=== PATIENT | female | born 1970 | race African-American/Black ===

== ENCOUNTER 2021-09-15 21:05 | Observation (INO) | payer BC ==
[~2021-09-15] VITALS: Ht 170.2 cm; Wt 78.4 kg
[2021-09-15 21:38] LABS: BASO # 0.1 x10^3/uL (0.0-0.2); BASO % 1 % (0-3); EOS % 0 % (0-3); HEMATOCRIT 35.2 % (36.0-47.0); HEMOGLOBIN 11.3 g/dL (12.0-15.5); LYMPH # 3.7 x10^3/uL (1.0-4.8); LYMPH % 34 % (24-48); MEAN CORPUSCULAR HEMOGLOBIN 28 pg (25-35); MEAN CORPUSCULAR HGB CONC 32 g/dL (31-37); MEAN CORPUSCULAR VOLUME 86 fL (79-100); MONO # 0.7 x10^3/uL (0.0-1.1); MONO % 7 % (0-9); NEUT # 6.4 x10^3/uL (1.8-7.7); NEUT % 58 % (31-73); PLATELET COUNT 297 x10^3/uL (140-400)
[2021-09-15 21:43] LABS: PREG TEST PT QUAL NEGATIVE (NEG)
[2021-09-15 21:49] LABS: ALBUMIN 3.5 g/dL (3.4-5.0); CALCIUM 8.7 mg/dL (8.5-10.1); CREATININE 0.8 mg/dL (0.6-1.0); DIRECT BILIRUBIN 0.2 mg/dL (0.0-0.2); GFR 92.2; MAGNESIUM 1.8 mg/dL (1.8-2.4); TOTAL BILIRUBIN 0.8 mg/dL (0.2-1.0); TOTAL PROTEIN 7.9 g/dL (6.4-8.2)
[2021-09-15 21:50] LABS: POTASSIUM 2.7 mmol/L (3.5-5.1)
--- NOTE | 2021-09-15 21:51 | EKG ---
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
[2021-09-15] MEDS: POTASSIUM CHLORIDE 10MEQ 100 ML IV SCH ×2 (22:26→23:30)
[2021-09-15] MEDS ORDERED: POTASSIUM CHLORIDE 20 MEQ TABLET.ER. PO ONE (22:30)
[2021-09-15] MEDS ORDERED: IV NORMAL SALINE 1000ML BAG 1,000 ML IV ONE (22:30)
[2021-09-15] MEDS ORDERED: CONTRAST GIVEN. MC PRN (23:00)
[2021-09-15] MEDS ORDERED: hydrALAZINE 20 MG/ML VIAL. IVP ONE (23:00)
--- NOTE | 2021-09-15 23:20 | RAD ---
CT angiography chest, abdomen and pelvis without and with contrast PQRS statement: CT scans at this facility use dose reduction including either automated exposure cont rol, iterative reconstructions, and /or weight based radiation dosing via mA and kV modification when appropriate to reduce radiation dose to as low as reasonably achievable. HISTORY: Chest pain. Dissection. Contrast: Pre and postcontrast CT imaging with 100 mL Omnipaque 300 intravenous contrast with 3-D MIP and volume reconstructed images of the arteries acquired. Chest findings: No hyperdense mural hematoma of the aorta on noncontrast imaging. Ascending aorta kalia meter 3.5 cm. No thoracic aortic aneurysm or dissection. Heart size is normal. Pulmonary vessels and soft tissues are normal. No adenopathy in the chest. Cervical disc osteophytes with degenerative spin al canal stenoses at C6-C7 and C7-T1. Trachea and bronchi are unremarkable. Calcified granulomas in t he chest. No pulmonary opacities or pleural effusions. Abdomen findings: No hyperdense intramural hematoma of the aortoiliac arteries on noncontrast imaging . Calcified plaque of the abdominal aorta. No aneurysm, dissection, significant stenosis or occlusion of the aorta or abdominal arteries or iliac artery. Liver, kidneys, adrenals, gallbladder, pancreas and spleen are normal. The pancreas is normal. No obstruction or inflammation GI tract. No abdominal fluid or adenopathy. 1 cm fatty umbilical abdominal wall hernia. Bones unremarkable. Pelvis findings: No iliac artery and carotid dissection, stenosis or occlusion. There is moderate kathy cified plaque of the iliac arteries. Globular enlarged uterus with several ill-defined masses descend ing the upper pelvis. Ovaries not well visualized. The compressed by these uterine masses although an d adjacent adnexal mass cannot be excluded. Bladder, rectum and bones are unremarkable. IMPRESSION: 1. No acute process. No aneurysm or dissection of the thoracic aorta, abdominal aorta and iliac arter ies. 2. Enlarged globular uterus with several masses. These likely represent several large leiomyomas. Giv en the size of the uterus, uterine malignancy is not excluded. Electronically signed by: Ki Tavares MD (09/15/2021 11:18 PM) [facility]
[2021-09-15] MEDS ORDERED: IOHEXOL 350 MG/ML 100 ML VIAL. IV ONE (23:30)
[2021-09-15 23:35] LABS: BILIRUBIN,URINE NEGATIVE (NEG); CLARITY,URINE CLEAR; COLOR,URINE YELLOW
[2021-09-15 23:36] LABS: NITRITE,URINE NEGATIVE (NEG); PROTEIN,URINE NEGATIVE (NEG-TRACE); UROBILINOGEN,URINE 0.2 mg/dL (0.2 mg/dL)
[2021-09-15 23:37] LABS: AMPHETAMINE/METHAMPHETAMINE NEG (NEG); BACTERIA,URINE FEW /HPF (0-FEW); BARBITURATES NEG (NEG); BENZODIAZEPINES NEG (NEG); CANNABINOIDS POS (NEG); COCAINE NEG (NEG); METHADONE NEG (NEG); OPIATES NEG (NEG); PHENCYCLIDINE NEG (NEG)
--- NOTE | 2021-09-15 23:52 | PHYS DOC ---
Past Medical History Past Medical History: No Pertinent History Past Surgical History: Tubal ligation Smoking Status: Never Smoker Alcohol Use: None Drug Use: None General Adult EDM: Chief Complaint: CHEST PAIN HPI: HPI: 51-year-old female past medical history of hypertension, noncompliant with her lisinopril for the past 2 years, presents the ED with her , (patient consents to his/her/their knowledge and involvement in pts' medical care), complaints of " pulling and aching," left-sided chest pain and left upper back pain that started around 4 PM while she was sitting down at work doing paperwork. Patient states the pain worsened when she turned her head to the right and lifted her left upper arm. Symptoms lasted for approximately 4 hours. No prior history of similar symptoms. Denies any excessive caffeine use, cocaine or methamphetamines. Is a tobacco smoker. Has been vaccinated for COVID. No prior cardiac history. Father with history of peripheral arterial disease and stent placement. Patient denies any current or active chest discomfort. Does report increased stress and anxiety at work. 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 No personal or family history of AAA, AAD, CTD ([place] or marfans), cardiac arrhythmias (need for AICD), CAD, sudden or unexplainable (under 50 years of age or with exertion), or clotting disorders. Review of Systems: Review of Systems: Constitutional: Denies fever or chills. [] Eyes: Denies change in visual acuity. [] HENT: Denies nasal congestion or sore throat. [] Respiratory: Denies cough or shortness of breath. [] Cardiovascular: Denies palpitations or edema. [] GI: Denies abdominal pain, nausea, vomiting, bloody stools or diarrhea. [] : Denies dysuria or hematuria Musculoskeletal: Denies back pain or joint pain. [] Integument: Denies rash or diaphoresis Neurologic: Denies headache, focal weakness or sensory changes. [] Endocrine: Denies polyuria or polydipsia. [] Lymphatic: Denies swollen glands. [] Psychiatric: Denies depression or anxiety. [] Heart Score: C/O Chest Pain: Yes HEART Score for Chest Pain: HEART Score for Chest Pain Response (Comments) Value History Moderately Suspicious 1 ECG Nonspecific Repolarizatio 1 Age >45 - < 65 1 Risk Factors 1 or 2 Risk Factors 1 Troponin < Normal Limit 0 Total 4 Risk Factors: Risk Factors: DM, Current or recent (<one month) smoker, HTN, HLP, family history of CAD, obesity. Risk Scores: Score 0 - 3: 2.5% MACE over next 6 weeks - Discharge Home Score 4 - 6: 20.3% MACE over next 6 weeks - Admit for Clinical Observation Score 7 - 10: 72.7% MACE over next 6 weeks - Early Invasive Strategies Current Medications: Current Medications Medications (Trade) Dose Ordered Sig/Georgina Start Time Stop Time Status Last Admin Dose Admin Hydralazine HCl (Apresoline Inj) 20 mg 1X ONCE 09/15/21 23:00 09/15/21 23:01 DC Info (CONTRAST GIVEN -- Rx MONITORING) 1 each PRN DAILY PRN 09/15/21 23:00 09/17/21 22:59 Iohexol (Omnipaque 350 Mg/ml) 100 ml 1X ONCE 09/15/21 23:30 09/15/21 23:31 DC 09/15/21 23:00 100 ML Potassium Chloride/Water 100 ml @ 100 mls/hr Q1H 09/15/21 22:30 09/16/21 00:29 09/15/21 22:26 100 MLS/HR Potassium Chloride (Klor-Con) 40 meq 1X ONCE 09/15/21 22:30 09/15/21 22:31 DC 09/15/21 22:37 40 MEQ Sodium Chloride 1,000 ml @ 1,000 mls/hr 1X ONCE 09/15/21 22:30 09/15/21 23:29 DC 09/15/21 22:29 1,000 MLS/HR Allergies: Allergies: Allergies Coded Allergies Type Severity Reaction Last Updated Verified No Known Drug Allergies 09/15/21 No Physical Exam: PE: Constitutional: Well developed, well nourished, no acute distress, non-toxic appearance, hypertensive HENT: Normocephalic, atraumatic, Eyes: EOMI, conjunctiva normal, no discharge. Neck: Normal range of motion, supple, Cardiovascular: S1/2 present, regular rhythm Lungs & Thorax: Speaking in full sentences, bilateral equal chest rise, no tachypnea or increased work of breathing Abdomen: soft, no tenderness, Skin: Warm, dry, no erythema, no rash. [] Back: No midline tenderness, no CVA tenderness. [] Extremities: No tenderness, no cyanosis, no lower extremity edema Neurologic: Alert and oriented X 3, normal motor function, normal sensory function, no focal deficits noted. [] Psychologic: Affect normal, judgement normal, mood normal-, Current Patient Data: Labs: Laboratory Tests Test 09/15/21 20:19 09/15/21 23:15 White Blood Count 11.0 x10^3/uL (4.0-11.0) Red Blood Count 4.10 x10^6/uL (3.50-5.40) Hemoglobin 11.3 g/dL (12.0-15.5) L Hematocrit 35.2 % (36.0-47.0) L Mean Corpuscular Volume 86 fL (79-100) Mean Corpuscular Hemoglobin 28 pg (25-35) Mean Corpuscular Hemoglobin Concent 32 g/dL (31-37) Red Cell Distribution Width 16.0 % (11.5-14.5) H Platelet Count 297 x10^3/uL (140-400) Neutrophils (%) (Auto) 58 % (31-73) Lymphocytes (%) (Auto) 34 % (24-48) Monocytes (%) (Auto) 7 % (0-9) Eosinophils (%) (Auto) 0 % (0-3) Basophils (%) (Auto) 1 % (0-3) Neutrophils # (Auto) 6.4 x10^3/uL (1.8-7.7) Lymphocytes # (Auto) 3.7 x10^3/uL (1.0-4.8) Monocytes # (Auto) 0.7 x10^3/uL (0.0-1.1) Eosinophils # (Auto) 0.0 x10^3/uL (0.0-0.7) Basophils # (Auto) 0.1 x10^3/uL (0.0-0.2) D-Dimer (Serene) 1.39 ug/mlFEU (0.00-0.50) H Sodium Level 140 mmol/L (136-145) Potassium Level 2.7 mmol/L (3.5-5.1) *L Chloride Level 102 mmol/L (98-107) Carbon Dioxide Level 23 mmol/L (21-32) Anion Gap 15 (6-14) H Blood Urea Nitrogen 7 mg/dL (7-20) Creatinine 0.8 mg/dL (0.6-1.0) Estimated GFR (Cockcroft-Gault) 92.2 Glucose Level 105 mg/dL (70-99) H Calcium Level 8.7 mg/dL (8.5-10.1) Magnesium Level 1.8 mg/dL (1.8-2.4) Total Bilirubin 0.8 mg/dL (0.2-1.0) Direct Bilirubin 0.2 mg/dL (0.0-0.2) Aspartate Amino Transferase (AST) 24 U/L (15-37) Alanine Aminotransferase (ALT) 21 U/L (14-59) Alkaline Phosphatase 68 U/L (46-116) Creatine Kinase 188 U/L (26-192) Troponin I High Sensitivity 38 ng/L (4-50) IC-Jjp-G-Type Natriuretic Peptide 109 pg/mL (0-124) Total Protein 7.9 g/dL (6.4-8.2) Albumin 3.5 g/dL (3.4-5.0) Lipase 87 U/L (73-393) Serum Test, Qualitative Negative (NEG) Ethyl Alcohol Level < 10 mg/dL (0-10) Urine Collection Type Unknown Urine Color Yellow Urine Clarity Clear Urine pH 7.0 (<5.0-8.0) Urine Specific [place] 1.010 (1.000-1.030) Urine Protein Negative mg/dL (NEG-TRACE) Urine Glucose (UA) Negative mg/dL (NEG) Urine Ketones (Stick) Negative mg/dL (NEG) Urine Blood Small (NEG) Urine Nitrite Negative (NEG) Urine Bilirubin Negative (NEG) Urine Urobilinogen Dipstick 0.2 mg/dL (0.2 mg/dL) Urine Leukocyte Esterase Trace (NEG) Urine RBC 1-2 /HPF (0-2) Urine WBC 5-10 /HPF (0-4) Urine Squamous Epithelial Cells Few /LPF Urine Bacteria Few /HPF (0-FEW) Urine Opiates Screen Neg (NEG) Urine Methadone Screen Neg (NEG) Urine Barbiturates Neg (NEG) Urine Phencyclidine Screen Neg (NEG) Urine Amphetamine/Methamphetamine Neg (NEG) Urine Benzodiazepines Screen Neg (NEG) Urine Cocaine Screen Neg (NEG) Urine Cannabinoids Screen Pos (NEG) Urine Ethyl Alcohol Neg (NEG) Laboratory Tests 09/15/21 20:19 Laboratory Tests 09/15/21 20:19 Vital Signs: Vital Signs Date Time Temp Pulse Resp B/P (MAP) Pulse Ox O2 Delivery O2 Flow Rate FiO2 09/15/21 21:15 98.0 90 20 219/107 (144) 100 Room Air 98.0 EKG: EKG: Nhan 70 bpm, no axis deviation, QTC 480, Q waves in 2, 3 and aVF, no ST elevation or ST depression, no active chest pain on ed arrival Radiology/Procedures: Radiology/Procedures: IMAGING REPORT Signed PATIENT: JAC LUTHER RACCOUNT: [id number] : 1970 LOCATION: ER AGE: 51 SEX: F EXAM STATUS: REG ER ORD. PHYSICIAN: MARÍA BLACKWELL DO REASON: cp, r/o dissection PROCEDURE: CT ANGIO CHEST ABD PELVIS CT angiography chest, abdomen and pelvis without and with contrast PQRS statement: CT scans at this facility use dose reduction including either automated exposure control, iterative reconstructions, and /or weight based radiation dosing via mA and kV modification when appropriate to reduce radiation dose to as low as reasonably achievable. HISTORY: Chest pain. Dissection. Contrast: Pre and postcontrast CT imaging with 100 mL Omnipaque 300 intravenous contrast with 3-D MIP and volume reconstructed images of the arteries acquired. Chest findings: No hyperdense mural hematoma of the aorta on noncontrast imaging. Ascending aorta diameter 3.5 cm. No thoracic aortic aneurysm or dissection. Heart size is normal. Pulmonary vessels and soft tissues are normal. No adenopathy in the chest. Cervical disc osteophytes with degenerative spinal canal stenoses at C6-C7 and C7-T1. Trachea and bronchi are unremarkable. Calcified granulomas in the chest. No pulmonary opacities or pleural effusions. Abdomen findings: No hyperdense intramural hematoma of the aortoiliac arteries on noncontrast imaging. Calcified plaque of the abdominal aorta. No aneurysm, dissection, significant stenosis or occlusion of the aorta or abdominal arteries or iliac artery. Liver, kidneys, adrenals, gallbladder, pancreas and spleen are normal. The pancreas is normal. No obstruction or inflammation GI tract. No a bdominal fluid or adenopathy. 1 cm fatty umbilical abdominal wall hernia. Bones unremarkable. Pelvis findings: No iliac artery and carotid dissection, stenosis or occlusion. There is moderate calcified plaque of the iliac arteries. Globular enlarged uterus with several ill-defined masses descending the upper pelvis. Ovaries not well visualized. The compressed by these uterine masses although and adjacent adnexal mass cannot be excluded. Bladder, rectum and bones are unremarkable. IMPRESSION: 1. No acute process. No aneurysm or dissection of the thoracic aorta, abdominal aorta and iliac arteries. 2. Enlarged globular uterus with several masses. These likely represent several large leiomyomas. Given the size of the uterus, uterine malignancy is not excluded. Electronically signed by: Hua Tavares MD (09/15/2021 11:18 PM) [facility] [place] DICTATED and SIGNED BY: HUA TAVARES MD DATE: 09/15/21 [id number] 0 Course & Med Decision Making: Course & Med Decision Making Pertinent Labs and Imaging studies reviewed. (See chart for details) Concern for chest pain at risk in the setting of uncontrolled hypertension and ischemia on EKG with Q waves in inferior leads. Troponin within normal limits. Labs with hypokalemia. D-dimer is elevated. CT angios shows no aortic dissection. Hydralazine given in the emergency department. Patient has been asymptomatic with no current chest pain. Will admit for serial troponins, cardiology consultation further medical management. Patient stable at time of admission agrees with this plan. I have spoken with the patient and/or caregivers. I have explained the patie nt's condition, diagnosis and treatment plan based on the information available to me at this time. I have answered the patient's and/or caregivers questions and answered any concerns. The patient and/or caregivers have as good an understanding of the patient's diagnosis, condition and treatment plan as can be expected at this point. The patient has been stabilized within the capability of the emergency department. The patient will be transported for further care and management or will be moved to an observation or inpatient service. I have communicated with the staff or medical practitioner taking over this patient's care. Ivy Disclaimer: Ivy Disclaimer: This electronic medical record was generated, in whole or in part, using a voice recognition dictation system. Departure Departure Impression: Primary Impression: Chest pain Additional Impressions: Hypokalemia Uncontrolled hypertension Disposition: 09 ADMITTED INPATIENT Admitting Physician: JERRELL (Dr. Allen) Condition: STABLE Referrals: NO PCP (PCP) MARÍA BLACKWELL DO Sep 15, 2021 23:52
[2021-09-16] VITALS (7 sets, daily range): BP systolic 143–180; BP diastolic 70–99
[2021-09-16] MEDS ORDERED: LABETALOL 20 MG/4 ML DISP.SYRIN. IVP PRN (09:45)
--- NOTE | 2021-09-16 10:35 | HP ---
DATE OF SERVICE: 09/16/2021 ADMIT DATE: 09/15/2021 CHIEF COMPLAINT: Chest pain. 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 She presents with chest pain. Her brought her in. It felt like a pulling and aching sensation on the left side of her chest, started about 4:00 p.m., worse with movement, better with sitting still. When she turns to the right, it goes to the left arm. I discussed the case with ER physician. We are going to admit the patient and consult Cardiology. PAST MEDICAL HISTORY: Tubal ligation. ALLERGIES: None. FAMILY HISTORY: Coronary artery disease. SOCIAL HISTORY: She does not drink, smoke or take drugs. She works at [employer] She is under a lot of stress. MEDICATIONS: Reviewed, please refer to the MRAD. REVIEW OF SYSTEMS: GENERAL: No history of weight change, weakness or fevers. SKIN: No bruising, hair changes or rashes. EYES: No blurred, double or loss of vision. NOSE AND THROAT: No history of nosebleeds, hoarseness or sore throat. HEART: No history of palpitations, chest pain or shortness of breath on exertion. LUNGS: Denies cough, hemoptysis, wheezing or shortness of breath. GASTROINTESTINAL: Denies changes in appetite, nausea, vomiting, diarrhea or constipation. GENITOURINARY: No history of frequency, urgency, hesitancy or nocturia. NEUROLOGIC: Denies history of numbness, tingling, tremor or weakness. PSYCHIATRIC: No history of panic, anxiety or depression. ENDOCRINE: No history of heat or cold intolerance, polyuria or polydipsia. EXTREMITIES: Denies muscle weakness, joint pain, pain on walking or stiffness. PHYSICAL EXAMINATION: VITALS: Within normal limits and are stable. GENERAL: No apparent distress. Alert and oriented. HEENT: Normal cephalic atraumatic, external auditory canals are patent EYES: Extraocular muscles are intact, pupils are equally round and reactive to light and accommodation MUSCULOSKELETAL: Well developed, well nourished, good range of motion ENDOCRINE: No thyromegaly was palpated LYMPHATICS: No cervical chain or axillary nodes were noted HEMATOPOIETIC: No bruising NECK: Supple, no JVD, no thyromegaly was noted. LUNGS: Clear to auscultation in all lung palomo without rhonchi or wheezing. HEART: RRR, S1, S2 present. Peripheral pulses intact, no obvious murmurs were noted. ABDOMEN: Soft, nontender. Positive bowel sounds no organomegaly, normal bowel sounds. EXTREMITIES: Without any cyanosis, clubbing, or edema. Pedal pulses intact, Homans sign is negative. NEUROLOGIC: Normal speech, normal tone. A and O x 3, moves all extremities, no obvious focal deficits. PSYCHIATRIC: Normal affect, normal mood. Stable. SKIN: No ulcerations or rashes, good skin turgor, no jaundice. VASCULAR: Good capillary refill, neurovascular bundle appears to be intact. LABORATORY DATA: Troponin 38. CPK 188. BNP 109. Potassium of 2.7. Hematology is normal other than a hemoglobin of 11.3. D-dimer slightly high at 1.39. Drug screen positive for cannabinoids. Urinalysis: Trace leukocyte esterase with 5-[address] of the chest showed no aneurysms. CT of the abdomen shows enlarged globular uterus with several masses. These are likely leiomyomas. ASSESSMENT AND PLAN: Chest pain with incidental finding of hypokalemia of 2.7, anemia, slight urinary tract infection and uterine fibroids. The patient will be admitted. We will replace her potassium. Consult Cardiology. Consult [employer]. Empiric IV antibiotics. Cardiac monitoring, serial enzymes, serial EKGs, home meds. DVT prophylaxis. Full code. ONEYDA DR: Orly TID: [id number]
[2021-09-16 10:46] LABS: CALCIUM 8.4 mg/dL (8.5-10.1); CREATININE 0.7 mg/dL (0.6-1.0); GFR 107.6; POTASSIUM 3.4 mmol/L (3.5-5.1)
[2021-09-16 10:49] LABS: CHOLESTEROL/HDL RATIO 4.4
[2021-09-16] MEDS ORDERED: cefTRIAXone IV Push 1 GM VIAL. IVP SCH (11:00)
--- NOTE | 2021-09-16 12:22 | PDOC2 ---
TICO ABRAHAM GLASS SANDER BELT 09/16/21 1222: CARDIAC CONSULT DATE OF CONSULT Date of Consult DATE: 09/16/21 TIME: 11:57 REASON FOR CONSULT Reason for Consult: Chest pain REFERRING PHYSICIAN Referring Physician: [facility] SOURCE Source: Chart review, Patient HISTORY OF PRESENT ILLNESS HISTORY OF PRESENT ILLNESS This is a pleasant 51 yo female admitted for complains of chest pain. Reports this as left that radiate shoulders and between shouder blades. This is stabbing, tightening and hurts more when turning her head to the right like a pulled muscles. This started while working on her computer sitting at work. No nausea vomiting or diarrhea but she has been urinating more. No exertional CP or SOA. No fever or chills. She does get flushed fweeling at night intermittently. Denies any HAs. She was told of HTN 2 yrs ago and only took her meds for 3 months and odes not see PCP regularly. No known medical hx except for HTN. No CAD, VTE, or arrhythmias. PAST MEDICAL HISTORY Cardiovascular: HTN PAST SURGICAL HISTORY Past Surgical History: Tubal Ligation FAMILY HISTORY Family History noncontributory to CV SOCIAL HISTORY Smoke: 1 pack per day (>30 yrs) ALCOHOL: none Drugs: Marijuana Lives: with Family CURRENT MEDICATIONS CURRENT MEDICATIONS Current Medications Medications (Trade) Dose Ordered Sig/Georgina Route PRN Reason Start Time Stop Time Status Last Admin Dose Admin Potassium Chloride (Klor-Con) 40 meq 1X ONCE PO 09/15/21 22:30 09/15/21 22:31 DC 09/15/21 22:37 Potassium Chloride/Water 100 ml @ 100 mls/hr Q1H IV 09/15/21 22:30 09/16/21 00:29 DC 09/15/21 23:30 Sodium Chloride 1,000 ml @ 1,000 mls/hr 1X ONCE IV 09/15/21 22:30 09/15/21 23:29 DC 09/15/21 22:29 Hydralazine HCl (Apresoline Inj) 20 mg 1X ONCE IVP 09/15/21 23:00 09/15/21 23:01 DC 09/15/21 23:00 Iohexol (Omnipaque 350 Mg/ml) 100 ml 1X ONCE IV 09/15/21 23:30 09/15/21 23:31 DC 09/15/21 23:00 Ceftriaxone Sodium (Rocephin) 1 gm Q24H IVP 09/16/21 11:00 09/16/21 11:12 ALLERGIES ALLERGIES: Coded Allergies: No Known Drug Allergies (Unverified , 09/15/21) ROS Review of System 14 point ROS evaluated with pertinent positives per HPI PHYSICAL EXAM General: Alert, Oriented X3, Cooperative, No acute distress HEENT: Atraumatic, Mucous membr. moist/pink Lungs: Clear to auscultation, Normal air movement Heart: Regular rate (SR), Normal S1, Normal S2, No murmurs Abdomen: Soft, No tenderness Extremities: No cyanosis, No edema Skin: No breakdown, No significant lesion Neuro: Normal speech, Sensation intact Psych/Mental Status: Mental status NL, Mood NL MUSCULOSKELETAL: Full range of motion without pain VITALS/I&O VITALS/I&O: Vital Signs Date Time Temp Pulse Resp B/P (MAP) Pulse Ox O2 Delivery O2 Flow Rate FiO2 09/16/21 11:09 97.5 61 18 173/99 (123) 98 Room Air 97.5 I & O 09/15/21 09/15/21 09/16/21 15:00 23:00 07:00 Intake Total 240 ml Output Total 675 ml Balance -435 ml LABS Lab: Laboratory Tests Test 09/15/21 20:19 09/15/21 23:15 09/16/21 01:00 09/16/21 03:05 White Blood Count 11.0 x10^3/uL (4.0-11.0) Red Blood Count 4.10 x10^6/uL (3.50-5.40) Hemoglobin 11.3 g/dL (12.0-15.5) L Hematocrit 35.2 % (36.0-47.0) L Mean Corpuscular Volume 86 fL (79-100) Mean Corpuscular Hemoglobin 28 pg (25-35) Mean Corpuscular Hemoglobin Concent 32 g/dL (31-37) Red Cell Distribution Width 16.0 % (11.5-14.5) H Platelet Count 297 x10^3/uL (140-400) Neutrophils (%) (Auto) 58 % (31-73) Lymphocytes (%) (Auto) 34 % (24-48) Monocytes (%) (Auto) 7 % (0-9) Eosinophils (%) (Auto) 0 % (0-3) Basophils (%) (Auto) 1 % (0-3) Neutrophils # (Auto) 6.4 x10^3/uL (1.8-7.7) Lymphocytes # (Auto) 3.7 x10^3/uL (1.0-4.8) Monocytes # (Auto) 0.7 x10^3/uL (0.0-1.1) Eosinophils # (Auto) 0.0 x10^3/uL (0.0-0.7) Basophils # (Auto) 0.1 x10^3/uL (0.0-0.2) D-Dimer (Serene) 1.39 ug/mlFEU (0.00-0.50) H Sodium Level 140 mmol/L (136-145) Potassium Level 2.7 mmol/L (3.5-5.1) *L Chloride Level 102 mmol/L (98-107) Carbon Dioxide Level 23 mmol/L (21-32) Anion Gap 15 (6-14) H Blood Urea Nitrogen 7 mg/dL (7-20) Creatinine 0.8 mg/dL (0.6-1.0) Estimated GFR (Cockcroft-Gault) 92.2 Glucose Level 105 mg/dL (70-99) H Calcium Level 8.7 mg/dL (8.5-10.1) Magnesium Level 1.8 mg/dL (1.8-2.4) Total Bilirubin 0.8 mg/dL (0.2-1.0) Direct Bilirubin 0.2 mg/dL (0.0-0.2) Aspartate Amino Transferase (AST) 24 U/L (15-37) Alanine Aminotransferase (ALT) 21 U/L (14-59) Alkaline Phosphatase 68 U/L (46-116) Creatine Kinase 188 U/L (26-192) Troponin I High Sensitivity 38 ng/L (4-50) 40 ng/L (4-50) 40 ng/L (4-50) OL-Iqw-K-Type Natriuretic Peptide 109 pg/mL (0-124) Total Protein 7.9 g/dL (6.4-8.2) Albumin 3.5 g/dL (3.4-5.0) Lipase 87 U/L (73-393) Serum Test, Qualitative Negative (NEG) Ethyl Alcohol Level < 10 mg/dL (0-10) Urine Collection Type Unknown Urine Color Yellow Urine Clarity Clear Urine pH 7.0 (<5.0-8.0) Urine Specific [place] 1.010 (1.000-1.030) Urine Protein Negative mg/dL (NEG-TRACE) Urine Glucose (UA) Negative mg/dL (NEG) Urine Ketones (Stick) Negative mg/dL (NEG) Urine Blood Small (NEG) Urine Nitrite Negative (NEG) Urine Bilirubin Negative (NEG) Urine Urobilinogen Dipstick 0.2 mg/dL (0.2 mg/dL) Urine Leukocyte Esterase Trace (NEG) Urine RBC 1-2 /HPF (0-2) Urine WBC 5-10 /HPF (0-4) Urine Squamous Epithelial Cells Few /LPF Urine Bacteria Few /HPF (0-FEW) Urine Opiates Screen Neg (NEG) Urine Methadone Screen Neg (NEG) Urine Barbiturates Neg (NEG) Urine Phencyclidine Screen Neg (NEG) Urine Amphetamine/Methamphetamine Neg (NEG) Urine Benzodiazepines Screen Neg (NEG) Urine Cocaine Screen Neg (NEG) Urine Cannabinoids Screen Pos (NEG) Urine Ethyl Alcohol Neg (NEG) Test 09/16/21 10:00 Sodium Level 139 mmol/L (136-145) Potassium Level 3.4 mmol/L (3.5-5.1) L Chloride Level 104 mmol/L (98-107) Carbon Dioxide Level 23 mmol/L (21-32) Anion Gap 12 (6-14) Blood Urea Nitrogen 5 mg/dL (7-20) L Creatinine 0.7 mg/dL (0.6-1.0) Estimated GFR (Cockcroft-Gault) 107.6 Glucose Level 109 mg/dL (70-99) H Calcium Level 8.4 mg/dL (8.5-10.1) L Triglycerides Level 410 mg/dL (0-150) H Cholesterol Level 188 mg/dL (0-200) LDL Cholesterol, Calculated 63 mg/dL (0-100) VLDL Cholesterol, Calculated 82 mg/dL (0-40) H Non-HDL Cholesterol Calculated 145 mg/dL (0-129) H HDL Cholesterol 43 mg/dL (40-60) Cholesterol/HDL Ratio 4.4 Thyroid Stimulating Hormone (TSH) 2.435 uIU/mL (0.358-3.74) Laboratory Tests 09/15/21 20:19 Laboratory Tests 09/15/21 20:19 09/16/21 10:00 ASSESSMENT/PLAN ASSESSMENT/PLAN 1. Atypical chest pain: suspect due to uncontrolled HTN 2. HTN urgency: due to noncompliance. last BP med was about 2 yrs ago 3. DLP: TG at 404 4. Tobacco abuse 5. Marijuana use 6. Hypokalemia Recommendations 1. DASH diet. Start on losartan/HCTZ and coreg. Discussed HTN pathophysiology and treatment. HBPM. Replace K 2. Start on fenofibrate 3. TTE, TSH 4. Follow up in office 5. Smoking cessation NGUYEN RAO MD 09/17/21 0512: CARDIAC CONSULT ASSESSMENT/PLAN ASSESSMENT/PLAN Patient seen and examined 09/16/21. Agree with STACKER's assessment and plan. CP with atypical features ME ruled out 2D echo showed normal LVF without any WMA Agree with starting losartan and coreg for BP control and fenofibrate for TG control Thank you for your consultation TICO ABRAHAM APRN Sep 16, 2021 12:22 NGUYEN RAO MD Sep 17, 2021 05:12
[2021-09-16] MEDS ORDERED: hydroCHLOROthiazide 12.5 MG CAPSULE PO ONE (12:30)
[2021-09-16] MEDS ORDERED: POTASSIUM CHLORIDE 20 MEQ TABLET.ER. PO ONE (12:30)
--- NOTE | 2021-09-16 12:37 | NUR ---
SS following for discharge planning. SS reviewed pt chart and discussed with pt RN. Pt is from home with spouse and is currently on room air. Cardiology and Dr. Nunez consulted. Pt on IV Rocephin. SS will continue to follow for discharge planning.
[2021-09-16] MEDS: FENOFIBRATE 54 MG TABLET. PO SCH (12:46)
[2021-09-16] MEDS: ASPIRIN ENTERIC COATED 81 MG TABLET.DR. PO SCH (12:46)
[2021-09-16] MEDS: LOSARTAN POTASSIUM 50 MG TABLET. PO SCH (12:46)
--- NOTE | 2021-09-16 14:08 | PDOC2 ---
CONSULT Date of Consult Date of Consult DATE: 09/16/21 TIME: 14:04 Reason for Consult Reason for Consult: Uterine mass History of Present Illness Reason for Visit: 51y who presented to the ER last night with chest pain. She has never had an event like this prior to presenting to the ER. During the course of her w/u she underwent a CT revealing the followin. No acute process. No aneurysm or dissection of the thoracic aorta, abdominal aorta and iliac arteries. 2. Enlarged globular uterus with several masses. These likely represent several large leiomyomas. Given the size of the uterus, uterine malignancy is not excluded. Discussed fibroids with the pt. Explained that fibroids are very common. Explained that they are noncancerous monoclonal tumors arising from the smooth muscle cells and fibroblasts of the myometrium. Explained that when symptomatic, pts may experience abnormal uterine bleeding and/or pelvic pain/pressure. The pt feels that sometimes her periods are heavy and sometimes the flow is longer than nml. She doesnt feel that they are overall heavy though. She feels as she has gotten older her cramping has been much worse. She is still having periods every month. PMH: Denies PSH: BTL Meds: None All: NKDA OBHx: 4 x TSVD, 1 x SAB [employer] Specialist: LMP beginning of Aug BTL about 26 yrs ago Menarche at 16yo / regular SH: 1/2 PPD, rare EtOH FH: noncontributory Past Medical History Cardiovascular: HTN Past Surgical History Past Surgical History: Tubal Ligation Social History 1 pack per day (>30 yrs) ALCOHOL: none Drugs: Marijuana Lives: with Family Current Problem List Problem List Problems Medical Problems: (1) Chest pain Status: Acute (2) Hypokalemia Status: Acute (3) Uncontrolled hypertension Status: Acute Current Medications Current Medications Current Medications Potassium Chloride (Klor-Con) 40 meq 1X ONCE PO Last administered on 09/15/21at 22:37; Start 09/15/21 at 22:30; Stop 09/15/21 at 22:31; Status DC Potassium Chloride/Water 100 ml @ 100 mls/hr Q1H IV Last administered on 09/15/21at 23:30; Start 09/15/21 at 22:30; Stop 09/16/21 at 00:29; Status DC Sodium Chloride 1,000 ml @ 1,000 mls/hr 1X ONCE IV Last administered on 09/15/21at 22:29; Start 09/15/21 at 22:30; Stop 09/15/21 at 23:29; Status DC Hydralazine HCl (Apresoline Inj) 20 mg 1X ONCE IVP Last administered on 09/15/21at 23:00; Start 09/15/21 at 23:00; Stop 09/15/21 at 23:01; Status DC Iohexol (Omnipaque 350 Mg/ml) 100 ml 1X ONCE IV Last administered on 09/15/21at 23:00; Start 09/15/21 at 23:30; Stop 09/15/21 at 23:31; Status DC Info (CONTRAST GIVEN -- Rx MONITORING) 1 each PRN DAILY PRN MC SEE COMMENTS; Start 09/15/21 at 23:00; Stop 09/17/21 at 22:59 Labetalol HCl (Normodyne Iv Push) 20 mg PRN Q2HR PRN IVP HYPERTENSION; Start 09/16/21 at 09:45 Ceftriaxone Sodium (Rocephin) 1 gm Q24H IVP Last administered on 09/16/21at 11:12; Start 09/16/21 at 11:00 Potassium Chloride (Klor-Con) 40 meq 1X ONCE PO Last administered on 09/16/21at 12:46; Start 09/16/21 at 12:30; Stop 09/16/21 at 12:31; Status DC Fenofibrate (Lofibra) 54 mg DAILY PO Last administered on 09/16/21at 12:46; Start 09/16/21 at 12:30 Losartan Potassium (Cozaar) 50 mg DAILY PO Last administered on 09/16/21at 12:46; Start 09/16/21 at 12:30 Hydrochlorothiazide (Microzide) 12.5 mg DAILY PO ; Start 09/17/21 at 09:00 Hydrochlorothiazide (Microzide) 12.5 mg 1X ONCE PO Last administered on 09/16/21at 12:46; Start 09/16/21 at 12:30; Stop 09/16/21 at 12:31; Status DC Carvedilol (Coreg) 6.25 mg BIDWMEALS PO ; Start 09/16/21 at 17:00 Aspirin (Ecotrin) 81 mg DAILYWBKFT PO Last administered on 09/16/21at 12:46; Start 09/16/21 at 12:30 Lactobacillus Rhamnosus (Culturelle) 1 cap BID PO ; Start 09/16/21 at 21:00 Allergies Allergies: Coded Allergies: No Known Drug Allergies (Unverified , 09/15/21) Physical Exam General: Alert, Oriented X3, Cooperative, No acute distress HEENT: PERRLA, Mucous membr. moist/pink Lungs: Clear to auscultation, Normal air movement Heart: Regular rate, Normal S1, Normal S2, No murmurs Abdomen: Normal bowel sounds, Soft, No tenderness, No hepatosplenomegaly, No masses Extremities: No clubbing, No cyanosis, No edema, Normal pulses, No tenderness/swelling Skin: No rashes, No breakdown Neuro: Normal gait, Normal speech, Normal tone, Sensation intact, Reflexes 2+ Psych/Mental Status: Mental status NL, Mood NL Vitals VITALS Vital Signs Date Time Temp Pulse Resp B/P (MAP) Pulse Ox O2 Delivery O2 Flow Rate FiO2 09/16/21 12:46 61 173/99 09/16/21 11:09 97.5 18 98 Room Air 97.5 Labs Labs Laboratory Tests Test 09/15/21 20:19 09/15/21 23:15 09/16/21 01:00 09/16/21 03:05 White Blood Count 11.0 x10^3/uL (4.0-11.0) Red Blood Count 4.10 x10^6/uL (3.50-5.40) Hemoglobin 11.3 g/dL (12.0-15.5) Hematocrit 35.2 % (36.0-47.0) Mean Corpuscular Volume 86 fL (79-100) Mean Corpuscular Hemoglobin 28 pg (25-35) Mean Corpuscular Hemoglobin Concent 32 g/dL (31-37) Red Cell Distribution Width 16.0 % (11.5-14.5) Platelet Count 297 x10^3/uL (140-400) Neutrophils (%) (Auto) 58 % (31-73) Lymphocytes (%) (Auto) 34 % (24-48) Monocytes (%) (Auto) 7 % (0-9) Eosinophils (%) (Auto) 0 % (0-3) Basophils (%) (Auto) 1 % (0-3) Neutrophils # (Auto) 6.4 x10^3/uL (1.8-7.7) Lymphocytes # (Auto) 3.7 x10^3/uL (1.0-4.8) Monocytes # (Auto) 0.7 x10^3/uL (0.0-1.1) Eosinophils # (Auto) 0.0 x10^3/uL (0.0-0.7) Basophils # (Auto) 0.1 x10^3/uL (0.0-0.2) D-Dimer (Serene) 1.39 ug/mlFEU (0.00-0.50) Sodium Level 140 mmol/L (136-145) Potassium Level 2.7 mmol/L (3.5-5.1) Chloride Level 102 mmol/L (98-107) Carbon Dioxide Level 23 mmol/L (21-32) Anion Gap 15 (6-14) Blood Urea Nitrogen 7 mg/dL (7-20) Creatinine 0.8 mg/dL (0.6-1.0) Estimated GFR (Cockcroft-Gault) 92.2 Glucose Level 105 mg/dL (70-99) Calcium Level 8.7 mg/dL (8.5-10.1) Magnesium Level 1.8 mg/dL (1.8-2.4) Total Bilirubin 0.8 mg/dL (0.2-1.0) Direct Bilirubin 0.2 mg/dL (0.0-0.2) Aspartate Amino Transf (AST/SGOT) 24 U/L (15-37) Alanine Aminotransferase (ALT/SGPT) 21 U/L (14-59) Alkaline Phosphatase 68 U/L (46-116) Creatine Kinase 188 U/L (26-192) Troponin I High Sensitivity 38 ng/L (4-50) 40 ng/L (4-50) 40 ng/L (4-50) IY-Dvq-Z-Type Natriuretic Peptide 109 pg/mL (0-124) Total Protein 7.9 g/dL (6.4-8.2) Albumin 3.5 g/dL (3.4-5.0) Lipase 87 U/L (73-393) Serum Test, Qualitative Negative (NEG) Ethyl Alcohol Level < 10 mg/dL (0-10) Urine Collection Type Unknown Urine Color Yellow Urine Clarity Clear Urine pH 7.0 (<5.0-8.0) Urine Specific [place] 1.010 (1.000-1.030) Urine Protein Negative mg/dL (NEG-TRACE) Urine Glucose (UA) Negative mg/dL (NEG) Urine Ketones (Stick) Negative mg/dL (NEG) Urine Blood Small (NEG) Urine Nitrite Negative (NEG) Urine Bilirubin Negative (NEG) Urine Urobilinogen Dipstick 0.2 mg/dL (0.2 mg/dL) Urine Leukocyte Esterase Trace (NEG) Urine RBC 1-2 /HPF (0-2) Urine WBC 5-10 /HPF (0-4) Urine Squamous Epithelial Cells Few /LPF Urine Bacteria Few /HPF (0-FEW) Urine Opiates Screen Neg (NEG) Urine Methadone Screen Neg (NEG) Urine Barbiturates Neg (NEG) Urine Phencyclidine Screen Neg (NEG) Urine Amphetamine/Methamphetamine Neg (NEG) Urine Benzodiazepines Screen Neg (NEG) Urine Cocaine Screen Neg (NEG) Urine Cannabinoids Screen Pos (NEG) Urine Ethyl Alcohol Neg (NEG) Test 09/16/21 10:00 Sodium Level 139 mmol/L (136-145) Potassium Level 3.4 mmol/L (3.5-5.1) Chloride Level 104 mmol/L (98-107) Carbon Dioxide Level 23 mmol/L (21-32) Anion Gap 12 (6-14) Blood Urea Nitrogen 5 mg/dL (7-20) Creatinine 0.7 mg/dL (0.6-1.0) Estimated GFR (Cockcroft-Gault) 107.6 Glucose Level 109 mg/dL (70-99) Calcium Level 8.4 mg/dL (8.5-10.1) Triglycerides Level 410 mg/dL (0-150) Cholesterol Level 188 mg/dL (0-200) LDL Cholesterol, Calculated 63 mg/dL (0-100) VLDL Cholesterol, Calculated 82 mg/dL (0-40) Non-HDL Cholesterol Calculated 145 mg/dL (0-129) HDL Cholesterol 43 mg/dL (40-60) Cholesterol/HDL Ratio 4.4 Thyroid Stimulating Hormone (TSH) 2.435 uIU/mL (0.358-3.74) Laboratory Tests Test 09/15/21 20:19 09/15/21 23:15 09/16/21 01:00 09/16/21 03:05 White Blood Count 11.0 x10^3/uL (4.0-11.0) Red Blood Count 4.10 x10^6/uL (3.50-5.40) Hemoglobin 11.3 g/dL (12.0-15.5) Hematocrit 35.2 % (36.0-47.0) Mean Corpuscular Volume 86 fL (79-100) Mean Corpuscular Hemoglobin 28 pg (25-35) Mean Corpuscular Hemoglobin Concent 32 g/dL (31-37) Red Cell Distribution Width 16.0 % (11.5-14.5) Platelet Count 297 x10^3/uL (140-400) Neutrophils (%) (Auto) 58 % (31-73) Lymphocytes (%) (Auto) 34 % (24-48) Monocytes (%) (Auto) 7 % (0-9) Eosinophils (%) (Auto) 0 % (0-3) Basophils (%) (Auto) 1 % (0-3) Neutrophils # (Auto) 6.4 x10^3/uL (1.8-7.7) Lymphocytes # (Auto) 3.7 x10^3/uL (1.0-4.8) Monocytes # (Auto) 0.7 x10^3/uL (0.0-1.1) Eosinophils # (Auto) 0.0 x10^3/uL (0.0-0.7) Basophils # (Auto) 0.1 x10^3/uL (0.0-0.2) D-Dimer (Serene) 1.39 ug/mlFEU (0.00-0.50) Sodium Level 140 mmol/L (136-145) Potassium Level 2.7 mmol/L (3.5-5.1) Chloride Level 102 mmol/L (98-107) Carbon Dioxide Level 23 mmol/L (21-32) Anion Gap 15 (6-14) Blood Urea Nitrogen 7 mg/dL (7-20) Creatinine 0.8 mg/dL (0.6-1.0) Estimated GFR (Cockcroft-Gault) 92.2 Glucose Level 105 mg/dL (70-99) Calcium Level 8.7 mg/dL (8.5-10.1) Magnesium Level 1.8 mg/dL (1.8-2.4) Total Bilirubin 0.8 mg/dL (0.2-1.0) Direct Bilirubin 0.2 mg/dL (0.0-0.2) Aspartate Amino Transf (AST/SGOT) 24 U/L (15-37) Alanine Aminotransferase (ALT/SGPT) 21 U/L (14-59) Alkaline Phosphatase 68 U/L (46-116) Creatine Kinase 188 U/L (26-192) Troponin I High Sensitivity 38 ng/L (4-50) 40 ng/L (4-50) 40 ng/L (4-50) GF-Tfl-H-Type Natriuretic Peptide 109 pg/mL (0-124) Total Protein 7.9 g/dL (6.4-8.2) Albumin 3.5 g/dL (3.4-5.0) Lipase 87 U/L (73-393) Serum Test, Qualitative Negative (NEG) Ethyl Alcohol Level < 10 mg/dL (0-10) Urine Collection Type Unknown Urine Color Yellow Urine Clarity Clear Urine pH 7.0 (<5.0-8.0) Urine Specific [place] 1.010 (1.000-1.030) Urine Protein Negative mg/dL (NEG-TRACE) Urine Glucose (UA) Negative mg/dL (NEG) Urine Ketones (Stick) Negative mg/dL (NEG) Urine Blood Small (NEG) Urine Nitrite Negative (NEG) Urine Bilirubin Negative (NEG) Urine Urobilinogen Dipstick 0.2 mg/dL (0.2 mg/dL) Urine Leukocyte Esterase Trace (NEG) Urine RBC 1-2 /HPF (0-2) Urine WBC 5-10 /HPF (0-4) Urine Squamous Epithelial Cells Few /LPF Urine Bacteria Few /HPF (0-FEW) Urine Opiates Screen Neg (NEG) Urine Methadone Screen Neg (NEG) Urine Barbiturates Neg (NEG) Urine Phencyclidine Screen Neg (NEG) Urine Amphetamine/Methamphetamine Neg (NEG) Urine Benzodiazepines Screen Neg (NEG) Urine Cocaine Screen Neg (NEG) Urine Cannabinoids Screen Pos (NEG) Urine Ethyl Alcohol Neg (NEG) Test 09/16/21 10:00 Sodium Level 139 mmol/L (136-145) Potassium Level 3.4 mmol/L (3.5-5.1) Chloride Level 104 mmol/L (98-107) Carbon Dioxide Level 23 mmol/L (21-32) Anion Gap 12 (6-14) Blood Urea Nitrogen 5 mg/dL (7-20) Creatinine 0.7 mg/dL (0.6-1.0) Estimated GFR (Cockcroft-Gault) 107.6 Glucose Level 109 mg/dL (70-99) Calcium Level 8.4 mg/dL (8.5-10.1) Triglycerides Level 410 mg/dL (0-150) Cholesterol Level 188 mg/dL (0-200) LDL Cholesterol, Calculated 63 mg/dL (0-100) VLDL Cholesterol, Calculated 82 mg/dL (0-40) Non-HDL Cholesterol Calculated 145 mg/dL (0-129) HDL Cholesterol 43 mg/dL (40-60) Cholesterol/HDL Ratio 4.4 Thyroid Stimulating Hormone (TSH) 2.435 uIU/mL (0.358-3.74) Assessment/Plan Assessment/Plan Assessment: 51y who presented to the ER last night with chest pain Recommendations: 1.) Fibroids may benefit from an u/s to better characterize the size of the uterus and fibroids. Incidental finding because the pt denies the typical symptoms associated with fibroids like bleeding or pain. No intervention is necessary at this time 2.) Dysmenorrhea reports has gotten worse as she has gotten older. Will expectantly manage at this time. 3.) Contraception BTL 4.) Chest pain cardiology consulted 5.) Anemia Hgb 11.3 6.) UTI 7.) Will continue to follow KIRSTEN ST MD Sep 16, 2021 14:08
--- NOTE | 2021-09-16 16:22 | RAD ---
EXAM: Pelvic sonogram. HISTORY: Enlarged uterus. TECHNIQUE: Transabdominal sonographic imaging of the pelvis was performed. COMPARISON: None. FINDINGS: The uterus measures 12.5 x 7.5 x 6.4 cm. The endometrial stripe measures 2.1 cm in thicknes s. There are multiple uterine fibroids, the largest of which measures 5.6 cm. The ovaries are normal in size and demonstrate normal blood flow. There is no pelvic free fluid. IMPRESSION: 1. Multilevel uterine fibroids measuring up to 5.6 cm. 2. Thickened endometrial stripe. Correlate with the phase of the patient's menstrual cycle. Repeat im aging in a different phase of the menstrual cycle can be performed to exclude endometrial pathology. 3. Unremarkable ovaries. Electronically signed by: Ann Sy MD (09/16/2021 4:20 PM) [id number]
[2021-09-16] MEDS: CARVEDILOL 6.25 MG TABLET. PO SCH (16:53)
--- NOTE | 2021-09-16 17:50 | CARD ---
MR#: [id number] Date of Study: 09/16/2021 Ordering Physician: TICO ABRAHAM, Referring Physician: TICO ABRAHAM Tech: [facility] APPROVED REPORT EXAM: Two-dimensional and M-mode echocardiogram with Doppler and color Doppler. Other Information Quality : GoodHR: 59bpm Rhythm : NSR INDICATION Chest Pain RISK FACTORS Hypertension 2D DIMENSIONS RVDd3.0 (2.9-3.5cm)Left Atrium(2D)3.5 (1.6-4.0cm) IVSd1.2 (0.7-1.1cm)Aortic Root(2D)3.3 (2.0-3.7cm) LVDd4.3 (3.9-5.9cm)LVOT Diameter2.1 (1.8-2.4cm) PWd1.2 (0.7-1.1cm)LVDs2.6 (2.5-4.0cm) FS (%) 39.7 %SV57.7 ml LVEF(%)70.7 (>50%) Aortic Valve AoV Peak Jaya.130.8cm/sAoV VTI32.1cm AO Peak GR.6.8mmHgLVOT Peak Jaya.112.8cm/s AO Mean GR.3mmHgAVA (VMAX)2.93cm2 Mitral Valve MV E Suivigzv89.5cm/sMV DECEL [id number] MV A Bhzrlbrc92.3cm/sE/A Ratio0.8 Pulmonary Valve PV Peak Zwbtmhca70.4cm/s Tricuspid Valve TR P. Febydwxo508dz/sTR Peak Gr.21mmHg LEFT VENTRICLE The left ventricle is normal size. There is mild concentric left ventricular hypertrophy. The left ve ntricular systolic function is normal. Estimated ejection fraction 60-65%. There is normal LV segmen shi wall motion. The left ventricular diastolic function and filling is normal for age. RIGHT VENTRICLE The right ventricle is normal size. There is normal right ventricular wall thickness. The right ventr icular systolic function is normal. ATRIA The left atrium size is normal. The right atrium size is normal. The interatrial septum is intact wit h no evidence for an atrial septal defect or patent foramen ovale as noted on 2-D or Doppler imaging. AORTIC VALVE The aortic valve is normal in structure and function. Doppler and Color Flow revealed no significant aortic regurgitation. There is no significant aortic valvular stenosis. MITRAL VALVE The mitral valve is normal in structure and function. There is no evidence of mitral valve prolapse. There is no mitral valve stenosis. Doppler and Color Flow revealed no mitral valve regurgitation note d. TRICUSPID VALVE The tricuspid valve is normal in structure and function. Doppler and Color Flow revealed mild tricusp id regurgitation. Estimated PAP 25 mmHg. There is no tricuspid valve stenosis. PULMONIC VALVE The pulmonary valve is normal in structure and function. Doppler and Color Flow revealed no pulmonic valvular regurgitation. GREAT VESSELS The aortic root is normal in size. The ascending aorta is normal in size. The IVC is normal in size a nd collapses >50% with inspiration. PERICARDIAL EFFUSION There is no evidence of significant pericardial effusion. Critical Notification Critical Value: No <Conclusion> The left ventricular systolic function is normal. Estimated ejection fraction 60-65%. There is normal LV segmental wall motion. Mild tricuspid regurgitation. Estimated PAP 25 mmHg. There is no evidence of significant pericardial effusion. Signed by : Mike Benson, Electronically Approved : 09/16/2021 17:49:50
[2021-09-16] MEDS: LACTOBACILLUS RHAMNOSUS GG 1 CAPSULE. PO SCH (21:48)
--- NOTE | 2021-09-17 02:25 | NUR ---
Saline lock DC'd per patient request due to pain and "irritation." Explained it would need to be restarted tomorrow. Tele read by TERI Cabral
[2021-09-17 02:29] VITALS: BP 140/85
[2021-09-17 04:48] LABS: BASO % 1 % (0-3); EOS # 0.1 x10^3/uL (0.0-0.7); EOS % 1 % (0-3); HEMATOCRIT 33.4 % (36.0-47.0); LYMPH # 2.6 x10^3/uL (1.0-4.8); LYMPH % 40 % (24-48); MEAN CORPUSCULAR HEMOGLOBIN 29 pg (25-35); MEAN CORPUSCULAR HGB CONC 33 g/dL (31-37); MEAN CORPUSCULAR VOLUME 87 fL (79-100); MONO # 0.5 x10^3/uL (0.0-1.1); MONO % 8 % (0-9); NEUT # 3.3 x10^3/uL (1.8-7.7); NEUT % 51 % (31-73); PLATELET COUNT 270 x10^3/uL (140-400); RED BLOOD COUNT 3.84 x10^6/uL (3.50-5.40); RED CELL DISTRIBUTION WIDTH 15.9 % (11.5-14.5); WHITE BLOOD COUNT 6.4 x10^3/uL (4.0-11.0)
[2021-09-17 05:23] LABS: CALCIUM 8.6 mg/dL (8.5-10.1); CREATININE 0.8 mg/dL (0.6-1.0); GFR 92.2; POTASSIUM 3.7 mmol/L (3.5-5.1)
[2021-09-17 07:00] VITALS: BP 156/92
[2021-09-17] MEDS: FENOFIBRATE 54 MG TABLET. PO SCH (08:38)
[2021-09-17] MEDS: LACTOBACILLUS RHAMNOSUS GG 1 CAPSULE. PO SCH (08:39)
[2021-09-17] MEDS: ASPIRIN ENTERIC COATED 81 MG TABLET.DR. PO SCH (08:42)
[2021-09-17] MEDS: LOSARTAN POTASSIUM 50 MG TABLET. PO SCH (08:42)
[2021-09-17] MEDS: CARVEDILOL 6.25 MG TABLET. PO SCH (08:44)
[2021-09-17] MEDS ORDERED: hydroCHLOROthiazide 12.5 MG CAPSULE PO SCH (09:00)
--- NOTE | 2021-09-17 09:05 | PDOC ---
DIRECTOR OF CASEWORK SERVICES PROGRESS NOTE Date of Service: DATE: 09/17/21 TIME: 09:04 Subjective: Discussed u/s findings with the pt Objective: Vital Signs: Vital Signs Date Time Temp Pulse Resp B/P (MAP) Pulse Ox O2 Delivery O2 Flow Rate FiO2 09/16/21 07:00 97.7 80 18 143/81 (101) 98 Room Air 97.7 Vital Signs Date Time Temp Pulse Resp B/P (MAP) Pulse Ox O2 Delivery O2 Flow Rate FiO2 09/17/21 08:44 63 154/85 09/17/21 07:00 97.9 20 99 Room Air 97.9 Labs: Laboratory Tests Test 09/16/21 10:00 09/17/21 03:15 Sodium Level 139 mmol/L (136-145) 137 mmol/L (136-145) Potassium Level 3.4 mmol/L (3.5-5.1) L 3.7 mmol/L (3.5-5.1) Chloride Level 104 mmol/L (98-107) 104 mmol/L (98-107) Carbon Dioxide Level 23 mmol/L (21-32) 25 mmol/L (21-32) Anion Gap 12 (6-14) 8 (6-14) Blood Urea Nitrogen 5 mg/dL (7-20) L 10 mg/dL (7-20) Creatinine 0.7 mg/dL (0.6-1.0) 0.8 mg/dL (0.6-1.0) Estimated GFR (Cockcroft-Gault) 107.6 92.2 Glucose Level 109 mg/dL (70-99) H 120 mg/dL (70-99) H Calcium Level 8.4 mg/dL (8.5-10.1) L 8.6 mg/dL (8.5-10.1) Triglycerides Level 410 mg/dL (0-150) H Cholesterol Level 188 mg/dL (0-200) LDL Cholesterol, Calculated 63 mg/dL (0-100) VLDL Cholesterol, Calculated 82 mg/dL (0-40) H Non-HDL Cholesterol Calculated 145 mg/dL (0-129) H HDL Cholesterol 43 mg/dL (40-60) Cholesterol/HDL Ratio 4.4 Thyroid Stimulating Hormone (TSH) 2.435 uIU/mL (0.358-3.74) White Blood Count 6.4 x10^3/uL (4.0-11.0) Red Blood Count 3.84 x10^6/uL (3.50-5.40) Hemoglobin 11.0 g/dL (12.0-15.5) L Hematocrit 33.4 % (36.0-47.0) L Mean Corpuscular Volume 87 fL (79-100) Mean Corpuscular Hemoglobin 29 pg (25-35) Mean Corpuscular Hemoglobin Concent 33 g/dL (31-37) Red Cell Distribution Width 15.9 % (11.5-14.5) H Platelet Count 270 x10^3/uL (140-400) Neutrophils (%) (Auto) 51 % (31-73) Lymphocytes (%) (Auto) 40 % (24-48) Monocytes (%) (Auto) 8 % (0-9) Eosinophils (%) (Auto) 1 % (0-3) Basophils (%) (Auto) 1 % (0-3) Neutrophils # (Auto) 3.3 x10^3/uL (1.8-7.7) Lymphocytes # (Auto) 2.6 x10^3/uL (1.0-4.8) Monocytes # (Auto) 0.5 x10^3/uL (0.0-1.1) Eosinophils # (Auto) 0.1 x10^3/uL (0.0-0.7) Basophils # (Auto) 0.0 x10^3/uL (0.0-0.2) Laboratory Tests 09/17/21 03:15 Laboratory Tests 09/16/21 10:00 09/17/21 03:15 Laboratory Tests 09/17/21 03:15 Physical Exam: GENERAL: No apparent distress. Alert and oriented. HEENT: Head normocephalic, atraumatic. NECK: Supple LUNGS: Clear to auscultation. HEART: RRR, S1, S2 present, pulses intact ABDOMEN: Soft, positive bowel sounds. EXTREMITIES: No cyanosis or edema. NEUROLOGIC: Normal speech, normal tone PSYCHIATRIC: Normal affect, normal mood. SKIN: No ulceration. Assessment & Plan: A/P 51y who presented to the ER last night with chest pain 1.) Fibroids u/s consistent with CT. No intervention necessary for asx fibroids. Pt desires more information on fibroids. The nurse was to provide handout. 2.) Thicken endometrial stripe since still menstruating, correlates with her time in the cycle. 3.) Dysmenorrhea can be managed as an outpt 4.) Contraception BTL 5.) Chest pain cardiology consulted 6.) Anemia Hgb 11.3 7.) UTI 8.) Will continue to follow KIRSTEN ST MD Sep 17, 2021 09:04
--- NOTE | 2021-09-17 09:22 | PDOC ---
CARDIO Progress Notes Date and Time Date of Service 09/17/2021 Time of Evaluation 1020 Subjective Subjective: No Chest Pain, No shortness of breath, No Palpitations Vitals Vitals Vital Signs Date Time Temp Pulse Resp B/P (MAP) Pulse Ox O2 Delivery O2 Flow Rate FiO2 09/17/21 08:44 63 154/85 09/17/21 07:00 97.9 20 99 Room Air 97.9 Weight Weight [ ] Input and Output Intake and Output Intake and Output 09/17/21 07:00 Intake Total 820 ml Output Total 1150 ml Balance -330 ml Intake Oral 820 ml Output Urine Total 1150 ml # Bowel Movements 1 Laboratory Labs Laboratory Tests Test 09/16/21 10:00 09/17/21 03:15 Sodium Level 139 mmol/L (136-145) 137 mmol/L (136-145) Potassium Level 3.4 mmol/L (3.5-5.1) 3.7 mmol/L (3.5-5.1) Chloride Level 104 mmol/L (98-107) 104 mmol/L (98-107) Carbon Dioxide Level 23 mmol/L (21-32) 25 mmol/L (21-32) Anion Gap 12 (6-14) 8 (6-14) Blood Urea Nitrogen 5 mg/dL (7-20) 10 mg/dL (7-20) Creatinine 0.7 mg/dL (0.6-1.0) 0.8 mg/dL (0.6-1.0) Estimated GFR (Cockcroft-Gault) 107.6 92.2 Glucose Level 109 mg/dL (70-99) 120 mg/dL (70-99) Calcium Level 8.4 mg/dL (8.5-10.1) 8.6 mg/dL (8.5-10.1) Triglycerides Level 410 mg/dL (0-150) Cholesterol Level 188 mg/dL (0-200) LDL Cholesterol, Calculated 63 mg/dL (0-100) VLDL Cholesterol, Calculated 82 mg/dL (0-40) Non-HDL Cholesterol Calculated 145 mg/dL (0-129) HDL Cholesterol 43 mg/dL (40-60) Cholesterol/HDL Ratio 4.4 Thyroid Stimulating Hormone (TSH) 2.435 uIU/mL (0.358-3.74) White Blood Count 6.4 x10^3/uL (4.0-11.0) Red Blood Count 3.84 x10^6/uL (3.50-5.40) Hemoglobin 11.0 g/dL (12.0-15.5) Hematocrit 33.4 % (36.0-47.0) Mean Corpuscular Volume 87 fL (79-100) Mean Corpuscular Hemoglobin 29 pg (25-35) Mean Corpuscular Hemoglobin Concent 33 g/dL (31-37) Red Cell Distribution Width 15.9 % (11.5-14.5) Platelet Count 270 x10^3/uL (140-400) Neutrophils (%) (Auto) 51 % (31-73) Lymphocytes (%) (Auto) 40 % (24-48) Monocytes (%) (Auto) 8 % (0-9) Eosinophils (%) (Auto) 1 % (0-3) Basophils (%) (Auto) 1 % (0-3) Neutrophils # (Auto) 3.3 x10^3/uL (1.8-7.7) Lymphocytes # (Auto) 2.6 x10^3/uL (1.0-4.8) Monocytes # (Auto) 0.5 x10^3/uL (0.0-1.1) Eosinophils # (Auto) 0.1 x10^3/uL (0.0-0.7) Basophils # (Auto) 0.0 x10^3/uL (0.0-0.2) Microbiology Micro Microbiology 09/15/21 Urine Culture - Final, Complete Physical Exam HEENT: Neck Supple W Full Motion Chest: Symmetric LUNGS: Clear to Auscultation Heart: RRR (SR) Abdomen: Soft N/T Extremities: No Edema, No Calf Tenderness Neurology: alert, oriented, follow commands Assessment Assessment 1. Atypical chest pain: suspect due to uncontrolled HTN. EF and WM nml per TTE 2. HTN urgency: due to noncompliance. last BP med was about 2 yrs ago. Better controlled 3. DLP: TG at 404 4. Tobacco abuse 5. Marijuana use 6. Hypokalemia Recommendations 1. DASH diet. Continue losartan/HCTZ and coreg. Discussed HTN pathophysiology and treatment. HBPM. Replace K 2. Start on fenofibrate 3. TTE, TSH 4. Follow up in office as scheduled 5. Smoking cessation Justicifation of Admission Dx: Justifications for Admission: Justification of Admission Dx: Yes TICO ABRAHAM APRN Sep 17, 2021 09:22
[2021-09-17] MEDS ORDERED: AMOX1TAB10 PO (10:43)
[2021-09-17] MEDS ORDERED: LOSA-73 PO (10:43)
[2021-09-17] MEDS ORDERED: CARV6.2511 PO (10:43)
[2021-09-17] MEDS ORDERED: HYDR12.575 PO (10:43)
[2021-09-17] MEDS ORDERED: FENO54TA PO (10:43)
[2021-09-17] MEDS ORDERED: ASPI-886 PO (10:43)
[2021-09-17 10:45] VITALS: BP 161/110
--- NOTE | 2021-09-17 10:53 | NUR ---
SS following up with discharge planning. SS reviewed pt chart and discussed with pt RN. Pt is currently on room air. Cardiology and Gynecology following. Discharge order on the chart for home with self care.
--- NOTE | 2021-09-17 12:07 | NUR ---
Discharge instructions given. Answered questions and concerns. Verbalized understanding. Pt discharged home accompanied by spouse. Escorted out w/c.
--- NOTE | 2021-09-17 20:48 | DS ---
DATE OF DISCHARGE: 09/17/2021 ADMISSION DIAGNOSES: 1. Chest pain. 2. Hypokalemia. 3. Urinary tract infection. DISCHARGE DIAGNOSES: 1. Resolving atypical chest pain. 2. Incidental finding of uterine fibroids. 3. Resolving hypokalemia. 4. Resolving urinary tract infection. 5. History of tubal ligation as well. HOSPITAL COURSE: The patient is a pleasant 51-year-old female who states she is stressed out at work. 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 Sure enough, she presented with chest pain. We admitted her. We did serial enzymes, serial EKGs. We consulted Cardiology. Everything seems to be okay. Today, I saw and examined her. She is ready to go home. We did incidentally find that her potassium was a little low at 2.7, we replaced it. She also has a slight UTI, I treated that. She also had some new uterine fibroids. I consulted STAFF CONSULTANT, ____ carefully watched them. DISPOSITION: Home. ACTIVITY: As tolerated. DIET: Low sodium. DISCHARGE MEDICATIONS: Please see the MRAD. Augmentin 500 b.i.d., aspirin 81 a day, carvedilol 6.25 b.i.d., fenofibric acid 54 mg a day, hydrochlorothiazide 12.5 a day and losartan 50 a day. TOTAL TIME: 32 minutes. OMID/CELENA/JAYDA DR: OMID/tesha TID: [id number]
== END 2021-09-17 12:10 | disposition home or self-care (01) ==
LOC: ER 21:05 → INTOOBSV 23:52 → 6 SOUTH 23:52
PROVIDERS: ADMIT Internal Medicine; ATTEND Internal Medicine
DX: R07.89 Other chest pain (principal); E87.6 Hypokalemia; I16.0 Hypertensive urgency; I10 Essential (primary) hypertension; D25.9 Leiomyoma of uterus, unspecified; N39.0 Urinary tract infection, site not specified; D64.9 Anemia, unspecified; F12.90 Cannabis use, unspecified, uncomplicated; F41.9 Anxiety disorder, unspecified; K43.9 Ventral hernia without obstruction or gangrene; M25.78 Osteophyte, vertebrae; N92.0 Excessive and frequent menstruation with regular cycle; Z91.19 Patient's noncompliance with other medical treatment and regimen; Z98.51 Tubal ligation status; Z79.82 Long term (current) use of aspirin; Z79.899 Other long term (current) drug therapy; Z98.890 Other specified postprocedural states
CPT/HCPCS: 36415; 71275; 74174; 76856; 80048; 80061; 80076; 80307; 81001; 82550; 83690; 83735; 83880; 84443; 84484; 84703; 85025; 85379; 87086; 93005; 93306; 96361; 96365; 96375; 96376; 99285; G0480; J0360; J0696; J3480; J7030; Q9967; 96366; G0378; G0379; C8929

== ENCOUNTER → 2021-11-12 | Outpatient (CLI) | payer BC ==
[~2021-11-12] MED LIST: AMOX1TAB10 PO; ASPI-886 PO; CARV6.2511 PO; FENO54TA PO; HYDR12.575 PO; LOSA-73 PO
--- NOTE | 2021-11-12 14:53 | RAD ---
MR#: [id number] Date of Study: 11/12/2021 Ordering Physician: NGUYEN RAO Referring Physician: JOEY MCINTYRE Tech: RT Jim (R) (N) APPROVED REPORT Test Type: Exercise Stress Nurse/Tech: Sarah Erwin R.N. Test Indications: chest pain Cardiac History: HTN, smoker Medications: See Electronic Medical Record Medical History: See Electronic Medical Record Resting ECG: SB Resting Heart Rate: 50 bpm Resting Blood Pressure: 183/93mmHg Pretest Chest Pain: No chest pain Nurse/Tech Notes S1S2, lungs CTA Consent: The procedure was explained to the patient in lay terms. Informed consent was witnessed. Herbie eout was entered into [facility]. History and Stress Test performed by RT Jim (R) (N) Stress Symptoms SOA POST EXERCISE Reason for Termination: Reached target heart rate Target HR: Yes Max HR: 154 bpm 106% of Maximum Predicted HR: 145 bpm Exercise duration: 7:45 min:sec, 3 Stage Exercise capacity: 10METs Max Blood Pressure: 190/110mmHg Blood Pressure response to exercise: Normal blood pressure response during stress. Heart Rate response to exercise: wnl Chest Pain: No. Arrhythmia: No. ST Change: Yes. slight ST depression in leads II, AVF, V4-6 INTERPRETATION Stress EKG Conclusion: No evidence of stress induced EKG changes to suggest ischemia. Imaging Protocol IMAGE PROTOCOL: Rest Tc-99m/stress Tc-99m 1 day Rest: Stress: Viability: Radiopharm.Tc99m DdkgrlccsYm60x Sestamibi [id number] 31mCi Duration 13min. 13min. Img Date 11/12/2021 11/12/2021 Inj-Img [id number]. 60min. Rest Admin Site:IV - Right AntecubitalAdministrator:RT Jim (R)(N) Stress Admin Site: IV - Right AntecubitalAdministrator: JOEY FullerTCSaima, ARRT (R)(N) STRESS DATA End Diast. Vol.96.0mlLVEDV index BSA50.0ml End Syst. Vol.29.0mlLVESV index BSA15.0ml Myocardial Ewrz291.0gEject. Oexoxcqh92.0% Stress Scores Regional WT0.00Summed WT0.00 Regional WM0.00Summed WM0.00 The rest and stress images show normal perfusion, normal contraction and thickening. LV Perf. Quant 17 Seg. SSS0.00 17 Seg. SRS0.00 17 Seg. SDS0.00 Stress Defect Extent (% LAD)0.00Rest Defect Extent (% LAD)0.00Rev. Defect Extent (% LAD)0.00 Stress Defect Extent (% LCX) 0.00Rest Defect Extent (% LCX)0.00Rev. Defect Extent (% LCX)0.00 Stress Defect Extent (% RCA)0.00Rest Defect Extent (% RCA)0.00Rev. Defect Extent (% RCA)0.00 Stress Defect Extent (% CHRISTIANE)0.00Rest Defect Extent (% CHRISTIANE)0.00Rev. Defect Extent (% CHRISTIANE)0.00 Other Information Quality:Average Risk Assessment: Low Risk Conclusion 1. No evidence of EKG changes with stress testing. 2. Normal perfusion at stress/rest. 3. Low risk study. 4. EF > 60%. Signed by : Gaurav Kidd, Electronically Approved : 11/12/2021 14:53:06
== END ==
LOC: NM 07:48
PROVIDERS: ATTEND Internal Medicine Cardiovascular Disease
DX: R07.9 Chest pain, unspecified (principal)
CPT/HCPCS: 78452; 93017; A9500